=== PATIENT | female | born 1995 ===

== ENCOUNTER → 2024-11-06 | Outpatient (REF) | payer OTHER | LOC: M LAB REF 11:47 | PROVIDERS: ATTEND Nurse Practitioner Family | DX: R30.0 Dysuria (principal) ==

== ENCOUNTER → 2025-04-22 | Outpatient (REF) | payer OTHER ==
[2025-04-22 21:15] LABS: Trichomonas vaginalis (AMP) NOT DETECTED (NEGATIVE)
[2025-04-22 21:39] LABS: GC DNA AMPLIFICATION NEGATIVE (NEGATIVE)
== END ==
LOC: M LAB REF 18:55
PROVIDERS: ATTEND Physician Assistant
DX: Z13.9 Encounter for screening, unspecified (principal); N77.1 Vaginitis, vulvitis and vulvovaginitis in diseases classified elsewhere